=== PATIENT | female | born 2000 | race Caucasian/White ===

== ENCOUNTER 2021-02-18 12:35 | Emergency (ER) | payer MEDICAID ==
[~2021-02-18] VITALS: Ht 172.7 cm; Wt 113.6 kg
[2021-02-18 12:48] VITALS: Ht 172.7 cm; Wt 113.6 kg
[2021-02-18 12:57] LABS: BILIRUBIN NEGATIVE (NEGATIVE); KETONE NEGATIVE (NEGATIVE); NITRITE NEGATIVE (NEGATIVE); UROBILINOGEN NORMAL mg/dL (< 2)
[2021-02-18 12:58] LABS: BACTERIA MANY HPF (NONE SEEN); WHITE CELLS - URINE 0-5 HPF (0-4)
[2021-02-18 13:05] LABS: HCG URINE NEGATIVE (NEGATIVE)
[2021-02-18 13:05] LABS: BASOPHILS 0.3 % (0-2); EOSINOPHILS 0.1 % (0-7); HEMATOCRIT 44.4 % (36.0-48.0); HEMOGLOBIN 15.2 g/dL (12-16); IMMATURE GRANULOCYTES 0.3 % (0-5); LYMPHOCYTE ABS# 1.79 10x3/uL (1.18-3.74); LYMPHOCYTES 19.2 % (15-50); MCH 29.2 pg (26.0-34.0); MCHC 34.2 g/dL (31.0-37.0); MCV 85.4 fL (80.0-100.0); MEAN PLATELET VOLUME 9.7 fL (7.4-10.4); MONOCYTES 7.1 % (2-11); NEUTROPHIL ABS# 6.79 10x3/uL (1.56-6.13); PLATELET COUNT 367 10x3/uL (130-400); RDW 13.6 % (11.5-14.5); WBC 9.3 10x3/uL (4.8-10.8)
[2021-02-18 13:07] LABS: UDS - AMPHET NEGATIVE QUAL (NEGATIVE); UDS - BARB NEGATIVE QUAL (NEGATIVE); UDS - BENZO NEGATIVE QUAL (NEGATIVE); UDS - COCAINE NEGATIVE QUAL (NEGATIVE); UDS - OPIATE NEGATIVE QUAL (NEGATIVE); UDS - PCP NEGATIVE QUAL (NEGATIVE); UDS - THC NEGATIVE QUAL (NEGATIVE)
[2021-02-18 13:16] LABS: CALC OSMOLALITY 278 mosm/kg (275-300); CALCIUM 9.7 mg/dL (8.5-10.1); CARBON DIOXIDE 24.8 mmol/L (21.0-32.0); CHLORIDE - SERUM 103 mmol/L (98-107); CREATININE - SERUM 0.9 mg/dL (0.6-1.3); GLUCOSE 132 mg/dL (74-106); POTASSIUM - SERUM 3.7 mmol/L (3.5-5.1); SODIUM 138 mmol/L (136-145); UREA NITROGEN 15 mg/dL (7-18); eGFR NON AFRICAN AMERICAN 85 mL/min (90-120)
[2021-02-18 13:22] LABS: ALBUMIN 3.9 g/dL (3.4-5.0); ALKALINE PHOSPHATASE 94 U/L (30-120); ALT (SGPT) 48 U/L (10-68); BILIRUBIN - TOTAL 0.32 mg/dL (0.2-1.3); MAGNESIUM - SERUM 2.3 mg/dL (1.8-2.4); PROTEIN - SERUM 7.9 g/dL (6.4-8.2)
[2021-02-18 13:25] LABS: ACETAMINOPHEN < 10.0 ug/mL (10.0-30.0)
[2021-02-18] MEDS ORDERED: MACROBID100 MG PO (14:16)
[2021-02-18] MEDS ORDERED: FLUCONAZOLE150 MG PO (14:17)
[2021-02-18 14:47] VITALS: BP 148/80
[2021-02-19] MEDS ORDERED: ATIVAN1 MG PO (11:18)
[2021-02-19] MEDS ORDERED: ZOLOFT25 MG PO (11:19)
== END 2021-02-18 14:48 | disposition home or self-care (01) ==
LOC: D.ER 12:35
PROVIDERS: Family Medicine
DX: Z00.00 Encounter for general adult medical examination without abnormal findings (principal); N39.0 Urinary tract infection, site not specified; N76.0 Acute vaginitis

== ENCOUNTER 2021-02-19 08:55 | Emergency (ER) | payer MEDICAID ==
[~2021-02-19] VITALS: Ht 172.7 cm; Wt 113.6 kg
[~2021-02-19 08:55] MED LIST: FLUCONAZOLE150 MG PO; MACROBID100 MG PO
[2021-02-19 08:59] VITALS: Ht 172.7 cm; Wt 113.6 kg
[2021-02-19] MEDS ORDERED: ATIVAN1 MG PO (11:18)
[2021-02-19] MEDS ORDERED: ZOLOFT25 MG PO (11:19)
[2021-02-19 11:25] VITALS: BP 128/74
== END 2021-02-19 11:26 | disposition home or self-care (01) ==
LOC: D.ER 08:55
DX: F41.9 Anxiety disorder, unspecified (principal); R51.9 Headache, unspecified

== ENCOUNTER 2021-02-19 21:07 | Emergency (ER) | payer MEDICAID ==
[~2021-02-19] VITALS: Ht 172.7 cm; Wt 100.0 kg
[~2021-02-19 21:07] MED LIST changes: +ATIVAN1 MG PO; +ZOLOFT25 MG PO
[2021-02-19 21:25] VITALS: BP 162/86; Ht 172.7 cm; Wt 100.0 kg
[2021-02-19 21:43] LABS: HCG URINE NEGATIVE (NEGATIVE)
[2021-02-19 21:44] LABS: BILIRUBIN NEGATIVE (NEGATIVE); KETONE NEGATIVE (NEGATIVE); NITRITE NEGATIVE (NEGATIVE); UROBILINOGEN NORMAL mg/dL (< 2)
[2021-02-19 21:49] LABS: UDS - AMPHET NEGATIVE QUAL (NEGATIVE); UDS - BARB NEGATIVE QUAL (NEGATIVE); UDS - BENZO NEGATIVE QUAL (NEGATIVE); UDS - COCAINE NEGATIVE QUAL (NEGATIVE); UDS - OPIATE NEGATIVE QUAL (NEGATIVE); UDS - PCP NEGATIVE QUAL (NEGATIVE); UDS - THC NEGATIVE QUAL (NEGATIVE)
[2021-02-19 21:53] LABS: BASOPHILS 0.2 % (0-2); EOSINOPHILS 0.2 % (0-7); HEMATOCRIT 42.4 % (36.0-48.0); HEMOGLOBIN 14.5 g/dL (12-16); IMMATURE GRANULOCYTES 0.4 % (0-5); LYMPHOCYTE ABS# 2.62 10x3/uL (1.18-3.74); LYMPHOCYTES 20.4 % (15-50); MCH 29.2 pg (26.0-34.0); MCHC 34.2 g/dL (31.0-37.0); MCV 85.3 fL (80.0-100.0); MEAN PLATELET VOLUME 10.1 fL (7.4-10.4); MONOCYTES 13.3 % (2-11); NEUTROPHIL ABS# 8.39 10x3/uL (1.56-6.13); NEUTROPHILS 65.5 % (40-80); PLATELET COUNT 382 10x3/uL (130-400); RBC 4.97 10x6/uL (4.00-5.40); RDW 13.5 % (11.5-14.5)
[2021-02-19 21:59] LABS: WBC 12.8 10x3/uL (4.8-10.8)
[2021-02-19 22:10] LABS: CALC OSMOLALITY 273 mosm/kg (275-300); CALCIUM 9.3 mg/dL (8.5-10.1); CARBON DIOXIDE 25.3 mmol/L (21.0-32.0); CHLORIDE - SERUM 101 mmol/L (98-107); CREATININE - SERUM 0.8 mg/dL (0.6-1.3); GLUCOSE 109 mg/dL (74-106); SODIUM 136 mmol/L (136-145); UREA NITROGEN 16 mg/dL (7-18); eGFR NON AFRICAN AMERICAN > 90 mL/min (90-120)
[2021-02-19 22:11] LABS: POTASSIUM - SERUM 4.3 mmol/L (3.5-5.1)
[2021-02-19 22:20] LABS: ALBUMIN 3.8 g/dL (3.4-5.0); ALKALINE PHOSPHATASE 90 U/L (30-120); ALT (SGPT) 43 U/L (10-68); BILIRUBIN - TOTAL 0.21 mg/dL (0.2-1.3); MAGNESIUM - SERUM 1.9 mg/dL (1.8-2.4); PROTEIN - SERUM 7.5 g/dL (6.4-8.2)
== END 2021-02-20 10:20 | disposition home or self-care (01) ==
LOC: D.ER 21:07
PROVIDERS: Family Medicine
DX: R44.0 Auditory hallucinations (principal); R46.89 Other symptoms and signs involving appearance and behavior

== ENCOUNTER 2021-03-06 07:29 | Emergency (ER) | payer MEDICAID ==
[~2021-03-06] VITALS: Ht 172.7 cm; Wt 77.3 kg
[2021-03-06 07:31] VITALS: BP 118/75; Ht 172.7 cm; Wt 77.3 kg
[2021-03-06 08:19] LABS: BASOPHILS 0.2 % (0-2); EOSINOPHILS 0.5 % (0-7); HEMATOCRIT 50.2 % (36.0-48.0); HEMOGLOBIN 17.5 g/dL (12-16); IMMATURE GRANULOCYTES 0.3 % (0-5); LYMPHOCYTE ABS# 1.65 10x3/uL (1.18-3.74); LYMPHOCYTES 18.1 % (15-50); MCH 29.6 pg (26.0-34.0); MCHC 34.9 g/dL (31.0-37.0); MCV 84.9 fL (80.0-100.0); MEAN PLATELET VOLUME 11.4 fL (7.4-10.4); MONOCYTES 8.7 % (2-11); NEUTROPHIL ABS# 6.58 10x3/uL (1.56-6.13); NEUTROPHILS 72.2 % (40-80); RBC 5.91 10x6/uL (4.00-5.40); RDW 13.4 % (11.5-14.5); WBC 9.1 10x3/uL (4.8-10.8)
[2021-03-06 08:20] LABS: PLATELET COUNT 276 10x3/uL (130-400)
[2021-03-06 08:28] LABS: ANION GAP 17.6 mmol/L (8-16); CALCIUM 10.3 mg/dL (8.5-10.1); CARBON DIOXIDE 23.5 mmol/L (21.0-32.0); CREATININE - SERUM 1.1 mg/dL (0.6-1.3); POTASSIUM - SERUM 3.1 mmol/L (3.5-5.1)
[2021-03-06 08:34] LABS: ALBUMIN 4.3 g/dL (3.4-5.0); BILIRUBIN - TOTAL 1.52 mg/dL (0.2-1.3); MAGNESIUM - SERUM 2.6 mg/dL (1.8-2.4); PROTEIN - SERUM 8.8 g/dL (6.4-8.2)
[2021-03-06] MEDS ORDERED: ZOLOFT25 MG PO (09:21)
== END 2021-03-06 09:38 | disposition home or self-care (01) ==
LOC: D.ER 07:29
PROVIDERS: Family Medicine
DX: F20.9 Schizophrenia, unspecified (principal)